=== PATIENT | female | born 1960 | race Caucasian/White ===

== ENCOUNTER 2016-05-24 11:05 | Emergency (ER) | payer BC ==
[~2016-05-24] VITALS: Ht 170.2 cm; Wt 82.0 kg
[~2016-05-24 11:05] MED LIST: ATROVENT NASAL SPRAY; FLNIN NAE; LSNUNK PO; MEDR2.5T PO; NXMUNK PO; RANI150T3 PO; RIZA10TA18 PO
[2016-05-24 11:09] VITALS: TEMP 37; Ht 170.2 cm; Wt 82.0 kg
[2016-05-24] MEDS ORDERED: LSN20 PO (11:29)
[2016-05-24] MEDS ORDERED: FLUT0.15 (11:29)
[2016-05-24] MEDS ORDERED: ESOM1CAP34 PO (11:29)
[2016-05-24] MEDS ORDERED: IPRA0.03 (11:29)
[2016-05-24] MEDS ORDERED: ONDANSETRON INJ 2 MG/ML 2 ML VIAL IV STA (11:57)
[2016-05-24] MEDS ORDERED: SODIUM CHLORIDE 0.9% 1000ML 1,000 ML IV STA (11:57)
[2016-05-24] MEDS ORDERED: OPTIRAY 320 IV PRN ×2 (12:15)
[2016-05-24 12:24] LABS: BASO % 0.2 %; BASO ABS # 0.02 K/uL (0-0.2); COMPLETE YES; EOS % 0.4 %; HEMATOCRIT 43.2 % (37-47); IG% 0.3 %; LYMPH % 17.7 %; LYMPH ABS # 2.05 K/uL (1.2-3.4); MEAN CELL VOLUME 83.1 fL (80-100); MEAN CORPUSCULAR HEMOGLOBIN 26.9 pg (25-34); MEAN CORPUSCULAR HGB CONC 32.4 g/dl (32-36); MEAN PLATELET VOLUME 11.4 fL (7.4-10.4); MONO % 9.8 %; NEUT % 71.6 %; PLATELET COUNT 270 K/uL (130-400); WHITE BLOOD COUNT 11.56 K/uL (4.8-10.8)
[2016-05-24 12:25] LABS: URINE APPEARANCE CLEAR (CLEAR); URINE BILIRUBIN NEG (NEG); URINE COLOR YELLOW; URINE NITRITE NEG (NEG); URINE SPECIFIC GRAVITY 1.022 (1.000-1.030); UROBILINOGEN NEG (NEG)
[2016-05-24 12:36] LABS: MANUAL MICROSCOPIC REQUIRED? NO; REVIEW REQ? NO
[2016-05-24 12:40] LABS: BUN/CREATININE RATIO 9.8 (10-20); CALCIUM 9.1 mg/dl (8.5-10.1); POTASSIUM 3.7 mmol/L (3.5-5.1)
--- NOTE | 2016-05-24 14:57 | DIAGNOSTIC IMAGING REPORT ---
CT SCAN OF THE ABDOMEN AND PELVIS WITH IV CONTRAST CLINICAL HISTORY: Generalized abdominal pain. Fever. COMPARISON STUDY: Abdominal ultrasound dated 08/02/2007. TECHNIQUE: Following the IV administration of 92 cc of Optiray 320, CT scan of the abdomen and pelvis is performed from the lung bases to the proximal femora. Images are reviewed in the axial, sagittal, and coronal planes. IV contrast was administered without complication. Automated dose control exposure was utilized. CT DOSE: 428.11 mGy.cm FINDINGS: Lung bases: The heart is normal in size and without pericardial effusion. The lung bases are clear noting dependent atelectasis. There are several nodular densities identified in the breasts. Liver: The contrast-enhanced liver is normal in size and contour. The liver demonstrates diffusely diminished attenuation consistent with mild hepatic steatosis. There is no intrahepatic biliary ductal dilatation. The hepatic veins and portal veins are patent. Gallbladder: Surgically absent noting clips in the gallbladder fossa. Spleen: Normal in size and attenuation. Pancreas: Unremarkable. Adrenal glands: Unremarkable. Kidneys: The contrast enhanced kidneys are normal in size and without hydronephrosis. The kidneys enhance symmetrically. Abdominal vasculature: The abdominal aorta is normal in course and caliber. Bowel: The small bowel and colon are normal in course and caliber. There is mild sigmoid diverticulosis. There is wall thickening with surrounding pericolonic inflammation and trace fluid seen involving the distal descending/proximal sigmoid colon consistent with acute diverticulitis. No evidence of abscess is seen. There is mild colonic fecal retention. The appendix is well-visualized and normal. Peritoneum: There is no intraperitoneal free air. Trace fluid is seen in the left paracolic gutter. There is a small fat-containing umbilical hernia. Lymphadenopathy: None. Pelvic viscera: The bladder is normal as visualized. Uterine fibroids are suspected. No adnexal lesion is seen. Skeletal structures: 11 mm hypodensity in the spleen seen on image #104 is indeterminant but statistically likely benign. There is mild lumbosacral spondylosis. Minimal anterolisthesis is noted at L4-L5. No lytic or blastic lesions are seen. IMPRESSION: 1. There is mild sigmoid diverticulosis with evidence of acute diverticulitis involving the distal descending/proximal sigmoid colon. There is no intraperitoneal free air or evidence of abscess. 2. Mild hepatic steatosis. 3. Suspect a fibroid uterus. 4. Foci of indeterminant nodularity are present in both breasts. Nonemergent follow-up with mammography at the breast center is recommended. Mammogram. Electronically signed by: Taiwo Goldberg M.D. 05/24/2016 2:56 PM Dictated Date/Time: 05/24/2016 2:49 PM
[2016-05-24] MEDS ORDERED: SULF800T23 PO (15:22)
[2016-05-24] MEDS ORDERED: ACETAMINOPHEN 325 MG TAB PO STA (15:22)
[2016-05-24] MEDS ORDERED: METR-163 PO (15:22)
[2016-05-24 15:34] VITALS: BP 137/91; PULSE 93; O2SAT 100
--- NOTE | 2016-05-24 21:41 | EMERGENCY ROOM VISIT NOTE ---
ED Visit Note First contact with patient: 11:29 Chief Complaint: Left-sided abdominal pain and fever. History of Present Illness: Ms. Piper is a 56 year-old white female who ambulates into the ED accompanied by her complaining of left sided abdominal pain and fever. Patient was referred to the ED by Zev Inman to evaluate her abdominal pain. Historically patient reports significant irritable bowel syndrome, gastric reflux, and status post cholecystectomy and left sided ovarian cyst removal and treatment. Patient reports she was woken from sleep yesterday morning approximately 26 hours ago with sensations of needing to urinate. While she was urinating she reports that she developed mid to lower left sided abdominal pain. Since that time her pain has been constant. She describes an underlying pain that she describes as an achy cramping sensation. She rates his discomfort 4/10. The pain is nonradiating. Then intermittently she reports with movement she develops a sharp pain and rates this discomfort 7/10. She has not identified any other aggravating factors related to the pain. She has not identified any alleviating factors related to the pain. She has not taken any medications for pain prior to arrival at the hospital. Associated with her pain she reports that she has been having fevers with her highest 101F last evening. She denies chills, sweats, skin eruptions, skin color changes, upper respiratory tract symptoms, cough, wheezing, shortness of breath, right-sided abdominal pain, nausea, vomiting, diarrhea, rectal bleeding, black/tarry stools , urinary symptoms, hematuria, flank pain, vaginal bleeding, vaginal discharge. Review of Systems: As noted above in history of present illness. All body systems were reviewed and found to be negative as noted above. Past Medical History: As previously noted, hypertension, left lower leg DVT, varicose pain stripping, unspecified sinus surgery. Current Medications: Depo-Provera, Maxalt, Zantac, lisinopril, Flonase, Esomeprazole magnesium, Ipratropium bromide. Allergies to Medications: Prednisone, erythromycin, Levaquin and Augmentin. Social History: Patient is not employed; she lives with her and feels safe in her home environment; she denies tobacco and alcohol use. Physical Examination: Vital Signs: Date Time Temp Pulse Resp B/P Pulse Ox O2 Delivery O2 Flow Rate FiO2 05/24/16 15:34 93 16 137/91 100 Room Air 05/24/16 13:14 93 18 130/95 99 Room Air 05/24/16 11:09 37.0 105 18 135/80 98 Room Air GENERAL: 56-year-old female in mild to moderate distress due to pain, nontoxic- appearing, afebrile and hemodynamically stable. NEUROLOGICAL: Awake, alert and oriented to person, place and time. Answering questions appropriately and following commands. Normal gait. Good hand eye coordination. SKIN: Warm, dry and pink. No soft tissue eruptions or trauma noted. HEENT: Atraumatic and normocephalic. PERRLA. Sclera white and conjunctiva pink. Oral cavity moist and pink. Pharynx is nonerythematous or edematous. Speech normal. No lymphadenopathy. Trachea midline. No jugular venous distention. BACK: No tenderness over the bony spine. No CVA tenderness. THORAX: Lungs sounds are clear to auscultation and equal bilaterally with symmetrical chest wall. No wheezing, rales or rhonchi. No crepitus, tenderness , subcutaneous air or deformities noted. HEART: Regular rate and rhythm. No gallops, rubs or murmurs are appreciated. ABDOMEN: Flat and soft with moderate left sided tenderness starting in the mid quadrant area and extends into the lower quadrant but not into the pelvis. Decreased bowel sounds in all quadrants. No guarding, rigidity or organomegaly. EXTREMITIES: Moves all extremities well on command and with purpose. All distal neurovascular statuses are intact and equal bilaterally. ED Course: Patient is assessed as noted above. Laboratory Testing: Test 05/24/16 12:10 Range/Units White Blood Count 11.56 4.8-10.8 K/uL Red Blood Count 5.20 4.2-5.4 M/uL Hemoglobin 14.0 12.0-16.0 g/dL Hematocrit 43.2 37-47 % Mean Corpuscular Volume 83.1 80-100 fL Mean Corpuscular Hemoglobin 26.9 25-34 pg Mean Corpuscular Hemoglobin Concent 32.4 32-36 g/dl Platelet Count 270 130-400 K/uL Mean Platelet Volume 11.4 7.4-10.4 fL Neutrophils (%) (Auto) 71.6 % Lymphocytes (%) (Auto) 17.7 % Monocytes (%) (Auto) 9.8 % Eosinophils (%) (Auto) 0.4 % Basophils (%) (Auto) 0.2 % Neutrophils # (Auto) 8.28 1.4-6.5 K/uL Lymphocytes # (Auto) 2.05 1.2-3.4 K/uL Monocytes # (Auto) 1.13 0.11-0.59 K/uL Eosinophils # (Auto) 0.05 0-0.5 K/uL Basophils # (Auto) 0.02 0-0.2 K/uL RDW Standard Deviation 43.8 36.4-46.3 fL RDW Coefficient of Variation 14.3 11.5-14.5 % Immature Granulocyte % (Auto) 0.3 % Immature Granulocyte # (Auto) 0.03 0.00-0.02 K/uL Urine Color YELLOW Urine Appearance CLEAR CLEAR Urine pH 6.0 4.5-7.5 Urine Specific [place] 1.022 1.000-1.030 Urine Protein NEG NEG Urine Glucose (UA) NEG NEG Urine Ketones TRACE NEG Urine Occult Blood NEG NEG Urine Nitrite NEG NEG Urine Bilirubin NEG NEG Urine Urobilinogen NEG NEG Urine Leukocyte Esterase NEG NEG Sodium Level 139 136-145 mmol/L Potassium Level 3.7 3.5-5.1 mmol/L Chloride Level 104 98-107 mmol/L Carbon Dioxide Level 25 21-32 mmol/L Anion Gap 10.0 3-11 mmol/L Blood Urea Nitrogen 10 7-18 mg/dl Creatinine 1.00 0.60-1.20 mg/dl Est Creatinine Clear Calc Drug Dose 70.8 ml/min Estimated GFR () 74.0 Estimated GFR (Non- 63.8 BUN/Creatinine Ratio 9.8 10-20 Random Glucose 103 70-99 mg/dl Calcium Level 9.1 8.5-10.1 mg/dl Total Bilirubin 1.3 0.2-1 mg/dl Direct Bilirubin 0.2 0-0.2 mg/dl Aspartate Amino Transf (AST/SGOT) 8 15-37 U/L Alanine Aminotransferase (ALT/SGPT) 18 12-78 U/L Alkaline Phosphatase 74 45-117 U/L Total Protein 7.8 6.4-8.2 gm/dl Albumin 3.7 3.4-5.0 gm/dl Lipase 142 73-393 U/L Contrast Abdominal/Pelvic CT: Was reviewed by myself and read by the radiologist showing mild sigmoid diverticulosis with evidence of acute diverticulitis, no free air or evidence of abscess, mild hepatic steatosis, suspected fibroid uterus, focal intermittent nodularity in both breasts. Patient was hydrated with normal saline and received 4 mg of Zofran IV; patient was offered IV pain medications multiple times and refused. Just prior to discharge she reports she was having a mild headache and requested 650 mg of acetaminophen which I acknowledge and ordered for her. Patient was reassessed multiple times during her stay in the emergency department. Patient's case was reviewed with Dr. Friedman; we agreed on diagnostic approach, treatment, disposition and plan. Patient was educated about jasvir's findings and instructed on her treatment plan; she verbalizes understanding and agreement with this plan. Clinical Impression: Acute diverticulitis. Decision-Making: Initially my differential diagnosis I considered diverticulitis , perforated viscus, constipation, bowel obstruction, ovarian cyst, ectopic , kidney stone and other causes. Disposition: Patient discharged home in stable condition accompanied by her ; prior to departure she was reassessed and subjectively reported she was feeling better and rated her discomfort 1/10. Plan: Patient was encouraged to use ibuprofen or acetaminophen as needed for pain every 6 hours or alternate every 3 hours. Patient was prescribed Bactrim DS 2 times a day and Flagyl 500 mg 3 times a day for 10 days. Patient was encouraged to stay well-hydrated with increased clear fluids. Patient was encouraged to follow-up with family physician for recheck in 1-2 days Patient was encouraged return ED for worsening/uncontrolled pain, worsening fevers, bloody stools or any new/concerning symptoms.
== END 2016-05-24 15:35 | disposition home or self-care (01) ==
LOC: C.EDB 11:07 → C.EDC 15:35
DX: K57.92 Diverticulitis of intestine, part unspecified, without perforation or abscess without bleeding (principal); K58.9 Irritable bowel syndrome, unspecified; K21.9 Gastro-esophageal reflux disease without esophagitis; Z86.718 Personal history of other venous thrombosis and embolism; Z90.49 Acquired absence of other specified parts of digestive tract; Z98.890 Other specified postprocedural states; Z79.899 Other long term (current) drug therapy

== ENCOUNTER → 2016-06-22 | Outpatient (CLI) | payer BC ==
[~2016-06-22] MED LIST changes: -ATROVENT NASAL SPRAY; +ESOM1CAP34 PO; -FLNIN NAE; +FLUT0.15; +IPRA0.03; +LSN20 PO; -LSNUNK PO; -NXMUNK PO
== END | disposition home or self-care (01) ==
LOC: C.PAPS 14:44
PROVIDERS: ATTEND Obstetrics & Gynecology
DX: Z01.419 Encounter for gynecological examination (general) (routine) without abnormal findings (principal)

== ENCOUNTER → 2016-06-27 | Outpatient (CLI) | payer BC ==
--- NOTE | 2016-06-28 15:18 | MAMMOGRAPHY REPORT ---
BILATERAL DIGITAL SCREENING MAMMOGRAM TOMOSYNTHESIS WITH CAD: 06/27/2016 CLINICAL HISTORY: Routine screening examination. TECHNIQUE: Breast tomosynthesis in addition to standard 2D mammography was performed. Current study was also evaluated with a Computer Aided Detection (CAD) system. COMPARISON: Comparison is made to exams dated: 06/23/2015 mammogram, 06/20/2014 mammogram, 06/19/2013 kim mogram, 06/16/2011 mammogram, 06/18/2012 mammogram, and 04/13/2010 mammogram - [facility]. BREAST COMPOSITION: There are scattered areas of fibroglandular density in both breasts. FINDINGS: There are fluctuating masses throughout the breasts, most likely representing fluctuating cysts. There is a stable metallic biopsy marker in the 3:00 right breast. No suspicious spiculated or irregular mass, architectural distortion or cluster of new, suspicious microcalcifications is se en. IMPRESSION: ACR BI-RADS CATEGORY 1: NEGATIVE There is no mammographic evidence of malignancy. A 1 year screening mammogram is recommended. The p atient will receive written notification of the results. Approximately 10% of breast cancers are not detected with mammography. A negative mammographic repor t should not delay biopsy if a clinically suggestive mass is present. Janice Mckeon M.D. ay/:06/27/2016 17:00:01 Roll Threader Operator: Jenn MCKEON(Steven)(M), [facility] letter sent: Normal 1/2 BI-RADS Code: ACR BI-RADS Category 1: Negative
== END | disposition home or self-care (01) ==
LOC: C.MAMM 08:57
PROVIDERS: ATTEND Obstetrics & Gynecology
DX: Z12.31 Encounter for screening mammogram for malignant neoplasm of breast (principal)

== ENCOUNTER → 2017-02-06 | Outpatient (CLI) | payer BC ==
[2017-02-06 12:13] LABS: HEMATOCRIT 44.1 % (37-47); MEAN CELL VOLUME 86.8 fL (80-100); MEAN CORPUSCULAR HEMOGLOBIN 27.6 pg (25-34); MEAN CORPUSCULAR HGB CONC 31.7 g/dl (32-36); PLATELET COUNT 269 K/uL (130-400); RED BLOOD COUNT 5.08 M/uL (4.2-5.4)
[2017-02-06 12:22] LABS: BLOOD UREA NITROGEN 13 mg/dl (7-18); BUN/CREATININE RATIO 11.5 (10-20); CALCIUM 9.2 mg/dl (8.5-10.1); CARBON DIOXIDE 28 mmol/L (21-32); CHLORIDE 107 mmol/L (98-107); GLUCOSE 92 mg/dl (70-99); MAGNESIUM 2.1 mg/dl (1.8-2.4); SODIUM 142 mmol/L (136-145)
== END | disposition home or self-care (01) ==
LOC: C.LAB1850 10:31
PROVIDERS: ATTEND Internal Medicine Cardiovascular Disease
DX: R00.2 Palpitations (principal); I47.2 Ventricular tachycardia

== ENCOUNTER → 2017-05-16 | Outpatient (CLI) | payer OTHER ==
[2017-05-16 17:56] LABS: BLOOD UREA NITROGEN 14 mg/dl (7-18); CREATININE 1.05 mg/dl (0.60-1.20)
== END | disposition home or self-care (01) ==
LOC: C.LAB1850 17:00
PROVIDERS: ATTEND Family Medicine
DX: N18.3 Chronic kidney disease, stage 3 (moderate) (principal)

== ENCOUNTER → 2017-06-29 | Outpatient (CLI) | payer OTHER ==
--- NOTE | 2017-06-30 07:45 | MAMMOGRAPHY REPORT ---
BILATERAL DIGITAL SCREENING MAMMOGRAM TOMOSYNTHESIS WITH CAD: 06/29/2017 CLINICAL HISTORY: Routine screening. Patient has no complaints. TECHNIQUE: Breast tomosynthesis in addition to standard 2D mammography was performed. Current study was also evaluated with a Computer Aided Detection (CAD) system. COMPARISON: Comparison is made to exams dated: 06/27/2016 mammogram, 06/23/2015 mammogram, 06/20/2014 kim mogram, 06/19/2013 mammogram, 06/18/2012 mammogram, and 06/16/2011 mammogram - [facility] BREAST COMPOSITION: There are scattered areas of fibroglandular density in both breasts. FINDINGS: No suspicious masses, calcifications, or areas of architectural distortion are noted in ei ther breast. There has been no significant interval change compared to prior exams. A biopsy clip is again noted within the right 3:00 breast. Fluctuating benign-appearing masses in bilateral breasts are again noted and likely represent cysts. IMPRESSION: ACR BI-RADS CATEGORY 2: BENIGN There is no mammographic evidence of malignancy. A 1 year screening mammogram is recommended. The pa tient will receive written notification of the results. Approximately 10% of breast cancers are not detected with mammography. A negative mammographic report should not delay biopsy if a clinically suggestive mass is present. Milagro Meeks M.D. /:06/29/2017 14:29:53 Termite Control Service Representative: Marichuy MCKEON(Steven)(M), [facility] letter sent: Normal 1/2 BI-RADS Code: ACR BI-RADS Category 2: Benign
== END | disposition home or self-care (01) ==
LOC: C.MAMM 08:53
PROVIDERS: ATTEND Obstetrics & Gynecology
DX: Z12.31 Encounter for screening mammogram for malignant neoplasm of breast (principal)

== ENCOUNTER → 2017-10-10 | Outpatient (CLI) | payer OTHER ==
[~2017-10-10] MED LIST changes: +LISI-726 PO; -LSN20 PO
== END | disposition home or self-care (01) ==
LOC: C.PAPS 16:32
PROVIDERS: ATTEND Obstetrics & Gynecology
DX: Z12.4 Encounter for screening for malignant neoplasm of cervix (principal)

== ENCOUNTER 2024-06-30 20:47 | Inpatient (IN) ==
[2024-06-30] MEDS: cefTRIAXone SODIUM 2,000 MG/50 ML BAG IV STA (21:58)
[2024-06-30] MEDS: KETOROLAC TROMETHAMINE 15 MG/ML VIAL IV STA (21:59)
[2024-06-30 22:04] LABS: Basophils # (auto) 0.02 K/uL (0.00-0.20); Basophils % (auto) 0.3 %; Eosinophils # (auto) 0.15 K/uL (0.00-0.50); Eosinophils % (auto) 2.3 %; Hematocrit (blood only) 42.1 % (37.0-47.0); Hemoglobin 13.5 g/dl (12.0-16.0); Immature Granulocytes # (auto) 0.02 K/uL (0.01-0.20); Immature Granulocytes % (auto) 0.3 %; Lymphocytes # (auto) 2.07 K/uL (1.20-3.40); Lymphocytes % (auto) 31.2 %; Mean Corpuscular Hemoglobin 27.2 pg (25.0-34.0); Mean Corpuscular Hgb Conc 32.1 g/dL (32.0-36.0); Mean Corpuscular Volume 84.7 fL (80.0-100.0); Mean Platelet Volume 11.4 fL (9.4-12.4); Monocytes # (auto) 0.63 K/uL (0.11-0.59); Monocytes % (auto) 9.5 %; Neutrophils # (auto) 3.74 K/uL (1.40-6.50); Neutrophils % (auto) 56.4 %; Platelet Count 235 K/uL (130-400); RDW Coefficient of Variation 14.4 % (11.5-14.5); RDW Standard Deviation 44.5 fL (36.4-46.3); Red Blood Count 4.97 M/uL (4.20-5.40); White Blood Count 6.63 K/ul (4.8-10.8)
[2024-06-30 22:20] LABS: Albumin Globulin Ratio 1.3 (0.9-2); Albumin Level 4.1 gm/dl (3.4-5.0); Bilirubin,Total 0.6 mg/dl (0.2-1.0); Calcium 9.1 mg/dl (8.6-10.3); Creatinine Clr Calc Pharmacy 60.9 ml/min; Globulin 3.2 gm/dl (2.5-4.0); Potassium 3.6 mmol/L (3.5-5.1); Total Protein 7.3 gm/dl (6.0-8.3)
--- NOTE | 2024-06-30 22:22 | Emergency Department Note ---
History of Present Illness General Chief complaint: Skin Problem Stated complaint: PAINFUL SKIN LUMP Time Seen by Provider: 06/30/24 21:29 History of Present Illness Maximum Pain Intensity: 6 This 64-year-old female presents ER complaining of worsening infection to her chest. Patient states she said a sebaceous cyst on her chest for years but a few days ago started getting red and irritated and the family doctor put her on Bactrim. Since then the redness and pain is increased in size. Patient denies fevers, vomiting, diarrhea history of MRSA. Home Medications Medication Instructions Recorded Confirmed Type esomeprazole magnesium 40 mg 40 mg PO DAILY 06/30/24 06/30/24 History capsule,delayed release fluticasone propionate 50 1 spray intranasal BID 06/30/24 06/30/24 History mcg/actuation nasal spray,suspension ipratropium bromide 21 mcg (0.03 2 spray intranasal BID 06/30/24 06/30/24 History %) nasal spray lisinopril 40 mg tablet 40 mg PO DAILY 06/30/24 06/30/24 History sodium chloride 0.65 % nasal spray 1 spray intranasal BID PRN Nasal 06/30/24 06/30/24 History aerosol (Nasal Jachin (sodium Congestion chloride)) sulfamethoxazole 800 1 tab PO BID 06/30/24 06/30/24 History mg-trimethoprim 160 mg tablet Allergies Allergy/AdvReac Type Severity Reaction Status Date / Time levofloxacin Allergy Mild severe Verified 06/21/24 12:56 tendon pain in b/l knee ciprofloxacin Allergy Verified 06/21/24 12:56 amoxicillin AdvReac Unknown n/v Verified 06/21/24 12:56 clavulanic acid AdvReac Unknown n/v Verified 06/21/24 12:56 erythromycin base AdvReac Unknown GI UPSET Verified 06/21/24 12:56 prednisone AdvReac Unknown PALPITATIONS, Verified 06/21/24 12:56 JITTERY Past Med/Surg History Problem List (Updated 06/30/24 @ 23:55 by Roberth Alegria MD) Infected cyst of skin Cellulitis of chest wall (Acute) Infected sebaceous cyst of skin (Acute) Essential hypertension Chronic GERD Medical History (Updated 06/30/24 @ 23:55 by Roberth Alegria MD) Hormone replacement therapy stopped 03/2023 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 Diverticulosis Pelvic pain in female H/O uterine leiomyoma Surgical History History of sinus surgery History of cholecystectomy H/O ligation of vein Family History Mother Breast cancer, Onset Age: 81 Grandmother (Maternal) Colorectal cancer Aunt Lung cancer Denies family history of Prostate cancer Social History Smoking Status: Former smoker Do You Dip or Chew Tobacco: No; Hx Alcohol Use: Yes Preferred Language: Chilean Feels Safe at Home: Yes Review of Systems A total of 10 systems reviewed and were otherwise negative Physical Exam Vital Signs Vital Signs - 24 hr 06/30/24 20:51 06/30/24 22:49 Temperature 36.8 C Temperature Source Temporal Artery Scan Pulse Rate 85 Pulse Rate [Finger] 71 Pulse Rhythm Regular Pulse Rhythm [Finger] Regular Pulse Strength Normal Pulse Strength [Finger] Normal Respiratory Rate 16 17 Respiratory Effort / Characteristics Non-Labored Spontaneous Non-Labored Spontaneous Respiratory Depth Normal Normal Respiratory Pattern Regular Regular Blood Pressure 170/103 H Blood Pressure [Left Arm] 150/96 H Blood Pressure Mean 125 Blood Pressure Mean [Left Arm] 114 Blood Pressure Position [Left Arm] Sitting Pulse Oximetry 97 92 Oxygen Delivery Method Room Air Room Air Sepsis Recent Fever Within 48 Hours No Sepsis New/Unexplained Change in Mental Status No Sepsis Action Taken by Nursing No Action Required VITALS: Vitals are noted on the nurse's note and reviewed by myself. Vital signs stable. GENERAL: Pleasant patient with present, in no acute distress, nondiaphoretic, well-developed well-nourished. 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 HEENT: Normocephalic. PERRLA. EOMI. Nares patent. Mucous membranes moist. Neck is supple without nuchal rigidity. HEART: Regular rate and rhythm LUNGS: Clear to auscultation bilaterally without wheezes, rales or rhonchi. No retractions or accessory muscle use. ABDOMEN: Positive bowel sounds x 4. Normal tympanic percussion. Soft, nontender, without masses or organomegaly. Sofia sign negative. No guarding or rebound tenderness. no CVA tenderness MUSCULOSKELETAL: No gross musculoskeletal defects. NEURO: Patient was alert and oriented to person place and time. No focal neurological deficits. Course Administered Medications Discontinued Medications Ceftriaxone Sodium (Rocephin) 2,000 mg in 50 mls @ 100 mls/hr IV NOW STA; Protocol Stop: 06/30/24 22:08 Last Infusion: 06/30/24 22:34 Dose: Infused Documented By: Admin: 06/30/24 21:58 Dose: 100 mls/hr Documented By: REDD Ketorolac Tromethamine (Ketorolac Tromethamine 15 Mg/Ml Vial) 10 mg IV NOW STA Stop: 06/30/24 21:42 Last Admin: 06/30/24 21:59 Dose: 10 mg Documented By: REDD Medical Decision Making Medical Records Attestation: I reviewed the patient's medical records. Home Medications Current Medication List: was personally reviewed by me Laboratory Data Attestation: I reviewed the patient's lab results. 06/30/24 21:50 06/30/24 21:50 Lab Results 06/30/24 Range/Units 21:50 WBC 6.63 (4.8-10.8) K/ul RBC 4.97 (4.20-5.40) M/uL Hgb 13.5 (12.0-16.0) g/dl Hct 42.1 (37.0-47.0) % MCV 84.7 (80.0-100.0) fL MCH 27.2 (25.0-34.0) pg MCHC 32.1 (32.0-36.0) g/dL RDW Std Deviation 44.5 (36.4-46.3) fL RDW Coeff of Leda 14.4 (11.5-14.5) % Plt Count 235 (130-400) K/uL MPV 11.4 (9.4-12.4) fL Immature Gran % (Auto) 0.3 % Neut % (Auto) 56.4 % Lymph % (Auto) 31.2 % Millard % (Auto) 9.5 % Eos % (Auto) 2.3 % Baso % (Auto) 0.3 % Neut # (Auto) 3.74 (1.40-6.50) K/uL Lymph # (Auto) 2.07 (1.20-3.40) K/uL Millard # (Auto) 0.63 H (0.11-0.59) K/uL Eos # (Auto) 0.15 (0.00-0.50) K/uL Baso # (Auto) 0.02 (0.00-0.20) K/uL Immature Gran # (Auto) 0.02 (0.01-0.20) K/uL Sodium 139 (136-145) mmol/L Potassium 3.6 (3.5-5.1) mmol/L Chloride 107 (98-107) mmol/L Carbon Dioxide 27 (21-32) mmol/L Anion Gap 5 (3-11) BUN 16 (6-23) mg/dl Creatinine 1.07 (0.6-1.2) mg/dl Est Cr Clr Drug Dosing 60.9 ml/min eGFR 58.73 BUN/Creatinine Ratio 15.0 (10-20) Glucose 93 (70-99(Fasting)) mg/dl Calcium 9.1 (8.6-10.3) mg/dl Total Bilirubin 0.6 (0.2-1.0) mg/dl AST 14 (13-39) U/L ALT 12 (7-52) U/L Alkaline Phosphatase 88 (34-104) U/L Total Protein 7.3 (6.0-8.3) gm/dl Albumin 4.1 (3.4-5.0) gm/dl Globulin 3.2 (2.5-4.0) gm/dl Albumin/Globulin Ratio 1.3 (0.9-2) Imaging Data Attestation: I personally reviewed and interpreted this imaging study as follows: Radiologist's Impression: Soft Tissue Ultrasound 06/30/24 21:39 Exam(s): US SOFT TISSUE EXAM: US Chest CLINICAL HISTORY: Reason for exam: right chest/breast abscess, ? extent. TECHNIQUE: Real-time ultrasound of the chest with image documentation. COMPARISON: No relevant prior studies available. FINDINGS: Soft tissues: In the midline of the chest, between the breasts, there is a complex vascular hypoechoic structure measuring 2.4 x 1.3 x 2.3 cm.. Lymph nodes: No lymphadenopathy is seen. IMPRESSION: In the midline of the chest, between the breasts, there is a complex vascular hypoechoic structure measuring 2.4 x 1.3 x 2.3 cm.. This may represent an abscess. Malignancy cannot be excluded on this exam. Electronically signed by: Jovan Crowley MD 06/30/24 23:26 PM MDM Narrative Prior records reviewed and summarized as above. Triage Nursing notes reviewed. Additional history obtained from family. The patient's history was concerning for swelling and redness of the skin. Differential diagnosis: Etiologies such as cellulitis, abscess, MRSA infection, DVT, necrotizing fasciitis, dermatitis, drug eruption, as well as others were entertained.. Physical examination: As above ER treatment provided: Rocephin and Toradol were ordered On reassessment the patient felt better. Diagnostics interpreted by me: The labs Independently Interpreted by myself revealed no worrisome leukocytosis, stable H&H Imaging studies: Imaging was reviewed and read by radiology Consultation: A consultation was placed with the hospitalist. The case was discussed and diagnostics were reviewed. The patient was evaluated in the ER for further treatment. This appears to be infected sebaceous cyst to the chest wall that is getting worse. Patient had worsening cellulitis while on the antibiotic. It is extended to her breast now. She was started on IV antibiotics. Medicine was consulted and the case was discussed. She will be evaluated for admission. Patient is agreeable. By the evaluation outlined above emergent etiologies such as necrotizing fasciitis, as well as others were deemed relatively unlikely. The pt informed about the findings as listed above. All questions were answered and pleased with the treatment. The chart was completed utilizing [email or web address] Speech voice recognition software. Grammatical errors, random word insertions, pronoun errors, and incomplete sentences are an occassional consequence of this system due to software limitations, ambient noise, and hardware issues. Any formal questions or concerns about the content, text, or information contained within the body of this dictation should be directly addressed to the physician diet assistant for clarification. Impression & Plan Infected sebaceous cyst of skin, Cellulitis of chest wall Discharge Plan Visit Data Chief Complaint: Skin Problem Stated Complaint: PAINFUL SKIN LUMP ED Provider: Kimani Liu ED Midlevel Provider: Glenny Brooks Discharge Problem: Infected sebaceous cyst of skin, Cellulitis of chest wall Patient Disposition: Being Evaluated by Hospitalist Condition: Good Forms Stand Alone Forms: My [facility] Prescriptions Prescriptions: No Action sulfamethoxazole-trimethoprim 800-160 mg tablet 1 tab PO BID esomeprazole magnesium 40 mg capsule,delayed release(DR/EC) 40 mg PO DAILY lisinopril 40 mg tablet 40 mg PO DAILY ipratropium bromide 21 mcg (0.03 %) spray,non-aerosol 2 spray INTRANASAL BID fluticasone propionate [Flonase] 50 mcg/actuation Jachin,Suspension 1 spray INTRANASAL BID Rx Instructions: administer into each nostril Nasal Jachin (sodium chloride) 0.65 % Aerosol,Jachin 1 spray INTRANASAL BID PRN (Reason: Nasal Congestion) Referrals Referrals: Fartun Burrows, [Outside Practitioners] -
--- NOTE | 2024-06-30 23:28 | Ultrasound Report ---
Exam(s): US SOFT TISSUE EXAM: US Chest CLINICAL HISTORY: Reason for exam: right chest/breast abscess, ? extent. TECHNIQUE: Real-time ultrasound of the chest with image documentation. COMPARISON: No relevant prior studies available. FINDINGS: Soft tissues: In the midline of the chest, between the breasts, there is a complex vascular hypoechoic structure measuring 2.4 x 1.3 x 2.3 cm.. Lymph nodes: No lymphadenopathy is seen. IMPRESSION: In the midline of the chest, between the breasts, there is a complex vascular hypoechoic structure measuring 2.4 x 1.3 x 2.3 cm.. This may represent an abscess. Malignancy cannot be excluded on this exam. Electronically signed by: Jovan Crowley MD 06/30/24 23:26 PM
--- NOTE | 2024-06-30 23:57 | History & Physical Report ---
Date of Service June 30, 2024 Assessment & Plan (1) Infected cyst of skin: Plan: 64-year-old female with past medical history significant for nonallergic rhinitis, hypertension, history of tachycardia, history of thrombosis of ovarian vein, esophagitis, history of calculus of gallbladder, diverticulosis, history of vestibular schwannoma, history of migraine, presents with infected cyst on the chest wall in the center of sternum. Patient states she has a lump there for many years. But since last 1 week started getting red and swollen and saw PCP and prescribed Bactrim on 06/28/2024. But the lump on the chest is getting bigger erythematous and more painful and the pain was radiating to the breast when she decided to come to the ER today. Denies any fevers. Currently denies runny nose. Has some cough from her sinusitis. No shortness of breath. No nausea. No abdominal pain. Since starting on Bactrim she has some diarrhea. Micturating okay. Ambulating okay. Hemodynamics are okay. Infected cyst of skin Ultrasound:n the midline of the chest, between the breasts, there is a complex vascular hypoechoic structure measuring 2.4 x 1.3 x 2.3 cm.. This may represent an abscess. Malignancy cannot be excluded on this exam. Failed outpatient treatment with Bactrim Received Rocephin in the ER. Will continue with Rocephin and add Dapto Pain control N.p.o., IV fluids Surgery consult in a.m. 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 DVT prophylaxis SCDs for now Disposition Medical floor Full code. History of Present Illness Chief Complaint: Infected cyst on the chest wall Primary Care Provider: Meagan Carvajal PA-C 64-year-old female with past medical history significant for nonallergic rhinitis, hypertension, history of tachycardia, history of thrombosis of ovarian vein, esophagitis, history of calculus of gallbladder, diverticulosis, history of vestibular schwannoma, history of migraine, presents with infected cyst on the chest wall in the center of sternum. Patient states she has a lump there for many years. But since last 1 week started getting red and swollen and saw PCP and prescribed Bactrim on 06/28/2024. But the lump on the chest is getting bigger erythematous and more painful and the pain was radiating to the breast when she decided to come to the ER today. Denies any fevers. Currently denies runny nose. Has some cough from her sinusitis. No shortness of breath. No nausea. No abdominal pain. Since starting on Bactrim she has some diarrhea. Micturating okay. Ambulating okay. Hemodynamics are okay. Past medical history. As mentioned above Past surgical history. Breast biopsy. Dental surgery. EGD. Laparoscopic cholecystectomy. Ligation of varicose veins. Nasal endoscopy. Bilateral cataracts. Social history. . No smoking. No alcohol use. No drug use. Family history. Father hypertension. Mother had hypercholesterolemia. Hypertension. Hypothyroidism. Maternal aunt had leukemia and lymphoma. Allergies Allergy/AdvReac Type Severity Reaction Status Date / Time levofloxacin Allergy Mild severe Verified 06/21/24 12:56 tendon pain in b/l knee ciprofloxacin Allergy Verified 06/21/24 12:56 amoxicillin AdvReac Unknown n/v Verified 06/21/24 12:56 clavulanic acid AdvReac Unknown n/v Verified 06/21/24 12:56 erythromycin base AdvReac Unknown GI UPSET Verified 06/21/24 12:56 prednisone AdvReac Unknown PALPITATIONS, Verified 06/21/24 12:56 JITTERY Home Medications Medication Instructions Recorded Confirmed Type esomeprazole magnesium 40 mg 40 mg PO DAILY 06/30/24 06/30/24 History capsule,delayed release fluticasone propionate 50 1 spray intranasal BID 06/30/24 06/30/24 History mcg/actuation nasal spray,suspension ipratropium bromide 21 mcg (0.03 2 spray intranasal BID 06/30/24 06/30/24 History %) nasal spray lisinopril 40 mg tablet 40 mg PO DAILY 06/30/24 06/30/24 History sodium chloride 0.65 % nasal spray 1 spray intranasal BID PRN Nasal 06/30/24 06/30/24 History aerosol (Nasal Marvin (sodium Congestion chloride)) sulfamethoxazole 800 1 tab PO BID 06/30/24 06/30/24 History mg-trimethoprim 160 mg tablet Past Med/Surg History Problem List Infected cyst of skin Cellulitis of chest wall (Acute) Infected sebaceous cyst of skin (Acute) Essential hypertension Chronic GERD Medical History Hormone replacement therapy stopped 03/2023 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 Diverticulosis Pelvic pain in female H/O uterine leiomyoma Surgical History History of sinus surgery History of cholecystectomy H/O ligation of vein Family History Mother Breast cancer, Onset Age: 81 Grandmother (Maternal) Colorectal cancer Aunt Lung cancer maternal Denies family history of Prostate cancer Social History Smoking Status: Former smoker Do You Dip or Chew Tobacco: No; Hx Alcohol Use: No Hx Substance Use: No Preferred Language: Japanese Wardrobe Mistress Required: No Beliefs That Will Affect Care: None Current Living Situation: Spouse Other Information That Helps Us Care for You: No Feels Safe at Home: Yes Safety Concerns: Feels Safe At This Time Assistive Devices: Contacts and Glasses Review of Systems Review of Systems: All systems reviewed & are unremarkable except as noted in HPI & below Physical Exam Physical Exam: General- Not in distress Head- atraumatic Eyes- PERRL. ENT- oropharynx clear Neck- supple, no JVD. Lungs- clear to auscultation no wheezing or crackles Heart- regular rate and rhythm; no murmur, no gallop. Abdomen- normal bowel sounds, soft, nontender, no distension Extremities- no pretibial edema, no erythema seen Neuro- alert, oriented PERRL, no facial palsy; no dysarthria; moves extremities Skin- infected cyst seen on the middle of sternal region with erythema surrounding on inspection. Inspected in presence of the nursing staff Results & Data Results & Data Vital Signs (Past 12 Hours) Vital Signs Temp Pulse Pulse Resp BP BP Pulse Ox 06/30/24 22:49 71 17 150/96 H 92 06/30/24 20:51 36.8 C 85 16 170/103 H 97 O2 Del Method 06/30/24 22:49 Room Air 06/30/24 20:51 Room Air Diagnostic Findings Laboratory Results WBC 6.63 K/ul (4.8-10.8) 06/30/24 21:50 RBC 4.97 M/uL (4.20-5.40) 06/30/24 21:50 Hgb 13.5 g/dl (12.0-16.0) 06/30/24 21:50 Hct 42.1 % (37.0-47.0) 06/30/24 21:50 MCV 84.7 fL (80.0-100.0) 06/30/24 21:50 MCH 27.2 pg (25.0-34.0) 06/30/24 21:50 MCHC 32.1 g/dL (32.0-36.0) 06/30/24: RDW Std Deviation 44.5 fL (36.4-46.3) 06/30/24: RDW Coeff of Leda 14.4 % (11.5-14.5) 06/30/24: Plt Count 235 K/uL (130-400) 06/30/24 21: MPV 11.4 fL (9.4-12.4) 06/30/24 21:50 Immature Gran % (Auto) 0.3 % 06/30/24 21:50 Neut % (Auto) 56.4 % 06/30/24 21:50 Lymph % (Auto) 31.2 % 06/30/24 21:50 Ward % (Auto) 9.5 % 06/30/24:50 Eos % (Auto) 2.3 % 06/30/24:50 Baso % (Auto) 0.3 % 06/30/24:50 Neut # (Auto) 3.74 K/uL (1.40-6.50) 06/30/24 21:50 Lymph # (Auto) 2.07 K/uL (1.20-3.40) 06/30/24 21:50 Ward # (Auto) 0.63 K/uL (0.11-0.59) H 06/30/24 21:50 Eos # (Auto) 0.15 K/uL (0.00-0.50) 06/30/24 21:50 Baso # (Auto) 0.02 K/uL (0.00-0.20) 06/30/24 21:50 Immature Gran # (Auto) 0.02 K/uL (0.01-0.20) 06/30/24 21:50 Sodium 139 mmol/L (136-145) 06/30/24 21:50 Potassium 3.6 mmol/L (3.5-5.1) 06/30/24 21:50 Chloride 107 mmol/L (98-107) 06/30/24 21:50 Carbon Dioxide 27 mmol/L (21-32) 06/30/24 21:50 Anion Gap 5 (3-11) 06/30/24 21:50 BUN 16 mg/dl (6-23) 06/30/24 21:50 Creatinine 1.07 mg/dl (0.6-1.2) 06/30/24 21:50 Est Cr Clr Drug Dosing 60.9 ml/min 06/30/24 21:50 eGFR 58.73 06/30/24 21:50 BUN/Creatinine Ratio 15.0 (10-20) 06/30/24 21:50 Glucose 93 mg/dl (70-99(Fasting)) 06/30/24 21:50 Calcium 9.1 mg/dl (8.6-10.3) 06/30/24 21:50 Total Bilirubin 0.6 mg/dl (0.2-1.0) 06/30/24 21:50 AST 14 U/L (13-39) 06/30/24 21:50 ALT 12 U/L (7-52) 06/30/24 21:50 Alkaline Phosphatase 88 U/L (34-104) 06/30/24 21:50 Total Protein 7.3 gm/dl (6.0-8.3) 06/30/24 21:50 Albumin 4.1 gm/dl (3.4-5.0) 06/30/24 21:50 Globulin 3.2 gm/dl (2.5-4.0) 06/30/24 21:50 Albumin/Globulin Ratio 1.3 (0.9-2) 06/30/24 21:50 Impressions Soft Tissue Ultrasound 06/30/24 21:39 Exam(s): US SOFT TISSUE EXAM: US Chest CLINICAL HISTORY: Reason for exam: right chest/breast abscess, ? extent. TECHNIQUE: Real-time ultrasound of the chest with image documentation. COMPARISON: No relevant prior studies available. FINDINGS: Soft tissues: In the midline of the chest, between the breasts, there is a complex vascular hypoechoic structure measuring 2.4 x 1.3 x 2.3 cm.. Lymph nodes: No lymphadenopathy is seen. IMPRESSION: In the midline of the chest, between the breasts, there is a complex vascular hypoechoic structure measuring 2.4 x 1.3 x 2.3 cm.. This may represent an abscess. Malignancy cannot be excluded on this exam. Electronically signed by: Jovan Crowley MD 06/30/24 23:26 PM Code Status & VTE Plan VTE Prophylaxis Plan VTE Prophylaxis will be ordered: Yes
[2024-07-01] MEDS ORDERED: POLYETHYLENE (MIRALAX) 17 GM PACK PO PRN (01:43)
[2024-07-01] MEDS ORDERED: SODIUM CHLORIDE 0.65% NA SOLN 45 ML (OCEAN) PRN (01:43)
[2024-07-01] MEDS ORDERED: KETOROLAC TROMETHAMINE 15 MG/ML VIAL IV PRN (01:43)
--- OUTSIDE RECORDS SUMMARY | 2024-07-01 01:45 | External Medical Summary | Summary of Care ---
Author Name Unknown Organization [facility] Address [address] [facility] [place] [address] Phone [phone] Care Team Providers Care Metal Forger'S Assistant Name Role Phone Wei Meagan Hatfield PA-C Primary Care Provider Reason for Visit * Reason Comments Lump Encounter Details Date Type Department Care Team (Late st Contact Info) Description 06/28/2024 1:20 PM EDT Office Visit General Internal Medicine Yoel Velasquez [place] [address] [facility] [place] [address] Kristina Mares PA-C [address] [facility] [place] [address] Infected cyst of skin* Allergies Active Allergy Reactions Criticality Noted Date Comments Ciprofloxacin 10/10/2023 Erythromycin Base 03/06/2001 gi Levofloxacin Other (Please comment) 07/02/2013 Knee tendon inflammation Prednisone 01/05/2010 Heart racing documented as of this encounter (statuses as of 06/28/2024) Medications NASAL SALINE 0.65 % NA SOLNIndications: Hypertrophy of nasal turbinates,Tempo romandibular joint disorders, unspecified,Shellfish Processing Machine Tender allyson rhinitis,Deviate d nasal septum,Other acute sinusitis,Iron deficiency anemia,Allergic rhinitis,Migrain e with aura,Esophagitis , unspecified,Vari sree without complication three puffs each nostril every 2 hours while awake 1 5 07/23/201 0 Active TYLENOL EXTRA STRENGTH 500 MG PO TABS as needed Active Scopolamine 1 MG/3DAYS Transdermal Patch 72 Hour (Transderm Scop) Place 1 Patch topically on the skin every 3 days. 10 Patch 12 3 Active Naproxen Sodium 220 MG Oral Capsule (Aleve) Take 1 Capsule by mouth 2 times a day with morning and evening meals. Active Drysol 20 % External Solution (Aluminum Chloride) Apply topically to affected area at bedtime. Apply to affected area 35 mL 4 Active Esomeprazole Magnesium 40 MG Oral Capsule Delayed Release (NexIUM)Indicati ons:Abdominal pain, epigastric Take 1 Capsule by mouth daily before breakfast. 90 Capsule 1 5 Active Fluticasone Propionate 50 MCG/ACT Nasal Suspension (Flonase) USE 2 SPRAYS IN EACH NOSTRIL TWICE DAILY 48 g 1 5 Active Ipratropium [place] 0.03 % Nasal Solution (Atrovent)Indica tions:Deviated nasal septum,Chronic rhinitis INHALE 2 SPRAYS IN EACH NOSTRIL 2 TO 3 TIMES DAILY 90 mL 1 5 Active Lisinopril 40 MG Oral TabletIndication s:HTN, goal below 140/90 Take 1 Tablet by mouth in the morning. 90 Tablet 1 5 Active Sulfamethoxazole -Trimethoprim 800-160 MG Oral Tablet (Bactrim DS)Indications:I nfected cyst of skin Take 1 Tablet by mouth in the morning and 1 Tablet before bedtime. Do all this for 7 days. Until gone. 14 Tablet 5 07/06/19 25 Active Amoxicillin-Pot Clavulanate 875-125 MG Oral Tablet (Augmentin)Indic ations:Acute recurrent maxillary sinusitis Take 1 Tablet by mouth in the morning and 1 Tablet before bedtime. Do all this for 10 days. 20 Tablet 5 06/29/19 25 Discontin ued(Medic ation List Clean Up) documented as of this encounter (statuses as of 06/28/2024) Active Problems Problem Noted Date Diagnosed Date Thrombosis of ovarian vein 04/24/2023 Diverticulosis of large intestine without hemorr kalin 04/12/2023 Primary snoring 01/21/2019 Tachycardia 05/17/2018 Hypersomnolence 05/17/2018 S/P radiation therapy 01/01/2018 Schwannoma of cranial nerve 05/31/2017 Sensorineural hearing loss (SNHL) of both ears 0 03/24/2017 HTN, goal below 140/90 08/31/2015 Overview: Per HTN Protocol Dysfunction of eustachian tube 04/27/2010 Hypertrophy of both inferior nasal turbinates NONALLERGIC RHINITIS 01/24/2008 Deviated nasal septum 01/03/2008 Migraine with aura 02/10/2003 Esophagitis 02/10/2003 Calculus of gallbladder with out mention of cholecystitis or obstruction Overview (06/19/2024): ICD-10 Update of Inactive Term Tinnitus Overview (06/27/2017): chronic since teenager Vestibular schwannoma Overview (06/27/2017): Bilateral vestibular schwannoma noted on MRI in May 2017 -40 years ago she had first episode of vertigo -10 years headaches, vertigo, and balance issues -Audiology evaluation in Mar 2017 Dr. Adam (in [facility]) -Hearing changes x past 3-6 months (Formerly diagnosed with TMJ vs Otolith vs Migraine Aura vs Allergies documented as of this encounter (statuses as of 06/28/2024) Resolved Problems Problem Noted Date Diagnosed Date Resolved Date Chronic obstructive pulmonary disease 01/02/2023 07/17/2023 Kidney disease, chronic, sta ge III (GFR 30-59 ml/min) 06/27/2017 11/04/2019 Overview: Per CKD protocol #1 Vertigo 05/31/2017 11/16/2017 Arthralgia of right temporomandibular joint 03/24/2017 06/27/2017 Tinnitus of right ear 03/24/20172017 Other acute recurrent sinusitis 03/24/2017 04/18/2022 Chronic sinusitis 04/27/2010 12/03/2013 HTN, goal to be determined 04/09/2010 0 09/03/2015 Overview: Per HTN Protocol Temporomandibular joint disorder 05/02/2008 06/27/2017 RECURRENT ACUTE SINUSITIS 01/03/2008 ADVANCE DIRECTIVE INFORMATION 10/21/2007 01/03/2008 Overview (10/21/2007): No, Advance Directive brochure given to patient. IRON DEFIC ANEMIA NOS 08/02/20042017 ACUTE SINUSITIS NOS 03/01/2004 01/03/20 08 Allergic rhinitis 02/10/2003 07/02/2013 Varicella without complication 02/10/2003 11/16/2017 documented as of this encounter (statuses as of 06/28/2024) Immunizations Name Administration Dates Next Due COVID-19 mRNA, LNP-s, No Pre serve, 2-Dose Series (Pfizer) 04/09/2021,06/09/2020,05/14/2020 PPD 06/17/2008,09/14/2005 Seasonal Influenza Vac., MDV , IM, 0.5 mL (Fluzone) 01/10/2014,12/19/2011 Seasonal Influenza, PF, 6 M & above, IM , (FluLaval or Fluzone) 04/26/2022,12/19/2019,12/25/2018,2017,12/26/2016,01/20/2016,01/10/2014,1 04/18/2011,12/19/2011,01/06/2011, 010 Seasonal Influenza, Quadriva lent Hd, 65+ Yrs 01/07/2021 Seasonal Influenza, Quadriva lent, No Preserve, IM 12/19/2019,12/25/2018,12/26/2016 Seasonal Influenza, Recombin ant, RIV4, PF, (Flublock) 04/02/2024 Seasonal Influenza, Trivalen t, (IIV3), PF, (Fluzone) 01/20/2016,01/06/2011,01/22/2010 TDAP, Age 7 and older, IM (Adacel) 12/19/2019, documented as of this encounter Social History Tobacco Use Types Packs/Day Years Used Date Smoking Tobacco: Never Smokeless Tobacco: Never Comments:only as teenager/hu sband smokes Alcohol Use Standard Drinks/Week Comments Not Currently 0 (1 standard drink = 0.6 oz pur e alcohol) PHQ-2 Answer Date Recorded PHQ Adult Total Score 0 09/27/2021 Comments No Sex and Gender Information Value Date Recorded Sex Assigned at Not on file Legal Sex Female 5:56 AM EST Gender Identity Not on file Sexual Orientation Not on file Occupation Industry Job Start Date Job End Date Not on file Not on file Not on file documented as of this encounter Last Filed Vital Signs Vital Sign Reading Time Taken Comments Blood Pressure 138/92 06/28/2024 1:26 PM EDT Pulse 82 06/28/2024 1:26 PM EDT Temperature 37.4 °C (99.4 °F) 06/28/2024 1:26 PM ED T Respiratory Rate - - Oxygen Saturation 90% 06/28/2024 1:26 PM EDT Inhaled Oxygen Concentration - - Weight - - Height - - Body Mass Index - - documented in this encounter Progress Notes * Kristina Mares PA-C - 06/28/2024 1:23 PM EDT Images from the original note were not included. Subjective Xiomara Piper is a 64 year old female that presents for Lump Pt here today with a c/o pain, redness, and edema of cyst on chest between breasts. Reports has hadsmall cyst there for some time. Currently symptoms began earlier this week. Denies fever/chills. Review of Systems: See HPI for pertinent positives. All other review of systems is negative. Objective BP 138/92 | Pulse 82 | Temp 99.4 °F (37.4 °C) | LMP 04/28/2010 | SpO2 90% Physical Exam Constitutional: General: She is not in acute distress. Appearance: She is not diaphoretic. Cardiovascular: Rate and Rhythm: Normal rate and regular rhythm. Pulmonary: Effort: Pulmonary effort is normal. Chest: Skin: General: Skin is warm and dry. Neurological: General: No focal deficit present. Mental Status: She is alert. Mental status is at baseline. Assessment and Plan Infected cyst of skin Orders: Sulfamethoxazole-Trimethoprim 800-160 MG Oral Tablet (Bactrim DS); Take 1 Tablet by mouth in the morning and 1 Tablet before bedtime. Do all this for 7 days. Until gone. Bactrim DS. Daily yogurt/probiotic encouraged while taking the antibiotic. Warm compresses to area.Antimicrobial soap to area. Wrap-Up Follow Up: Return if symptoms worsen or fail to improve. documented in this encounter Nursing Notes * Eliane Fishman CCMA - 06/28/2024 1:22 PM EDT Pt is here today for lump in middle of breast pt stated there is pain pt stated she had this lump for while now and pt stated its really sore and bigger than normally pt did have mammogram in pt is not having fevers pt refused weight today documented in this encounter Plan of Treatment Upcoming Encounters Date Type Department Care Team (Late st Contact Info) Description 08/26/2024 11:00 AM EDT Hospital Encounter Radiology, [facility] [address] [facility] [address] 09/03/2024 1:30 PM EDT Office Visit Radiation Oncology, [place] [address] [place] [address] Sherley Jones CRNP [address] [place] [address] 10/17/2024 11:00 AM EDT Office Visit [facility] [address] [place] [phone] Gerry Flores PA-C [address] [facility] [place] [address] 10/24/2024 11:00 AM EDT Office Visit [facility] [address] [place] [phone] Gerry Flores PA-C [address] [facility] [place] [address] 10/31/2024 11:00 AM EDT Office Visit [facility] [address] [place] [phone] Gerry Flores PA-C [address] [place] [address] Health Maintenance Due Date Last Done Comments Depression Screening 1974 Pneumococcal Vaccine: 50+ Years (1 of 2 - PCV) 1981 HPV/Co-Test 1992 Colonoscopy 2007 Fecal Occult Blood Test 2007 Sigmoidoscopy 2007 Zoster Vaccines (1 of 2) 2012 Cologuard 07/04/2023 07/03/2020, 12/26/2016 Colorectal Cancer Screening 07/04/2023 COVID-19 Vaccine ( season) 2023 04/09/2021, 06/09/2020, 05/14/2020 GFR 05/13/2024 05/13/2023, 03/20, 12/05/2022, Additional history exists Mammogram 02/12/2025 02/13/2024, 01/19, 02/01/2022, Additional history exists Cervical Cancer Screening 04/19/2025 Pap Smear 04/19/2025 04/19/2022, 09/18, 06/22/2016, Additional history exists Diabetes Screening 05/13/2026 05/13/2023, 0 04/04/2023, 12/05/2022, Additional history exists Albumin/Creatinine Ratio 01/18/2027 01/19/2024 Lipid Panel 01/18/2029 01/19/2024, 06/19, 02/29/2012, Additional history exists DTap/Tdap Vaccines (3 - Td or Tdap) 12/18/2029 12/19/2019, 01/05/2010, 05/15/2001 Influenza Vaccine (FLU shot) Completed , 04/26/2022, 01/07/2021, Additional history exists HPV (Gardasil) Vaccine Aged Out No lo nger eligible based on patient's age to complete this topic Hepatitis B Vaccine Aged Out No longe r eligible based on patient's age to complete this topic MENINGOCOCCAL (MENACTRA/MENVEO) Aged Out No longer eligible based on patient's age to complete this topic Meningitis B Vaccine (Bexsero/Trumemba) Aged Out No longer eligible based on patient's age to complete this topic documented as of this encounter Medical Devices Implanted Type Area Airbrush Artist Photography Device Identifier Shelf Expiration Date Model / Serial / Lot Lens Li61ao 13.00mm 12.50 - [id number] - [id number] Implanted:Qty: 1 on 07/20/2023 by Samir Land MD at OR [facility] Left: Eye BAUSCH 08/18/2027 [id number] / [id number] / [id number] Lens Li61ao 13.00mm 12.50 - [id number] - [id number] Implanted:Qty: 1 on 08/03/2023 by Samir Land MD at OR [facility] Right: Eye BAUSCH 10/18/2027 [id number] / [id number] / [id number] documented as of this encounter Visit Diagnoses Diagnosis Infected cyst of skin- Primary Sebaceous cyst documented in this encounter Advance Directives * Full Code (Latest Code Status on File) Date Activated Date Inactivated Comments 08/03/2023 9:30 AM 08/03/2023 3:28 PM This order r eflects the patients wishes and were consensually agreed upon. Question Answer Comments Discussion of Advance Directives occurred with: Patient Does the patient have a Living Will? No Does the patient have Health Care Power of Attor tracey? No * Full Code Date Activated Date Inactivated Comments 07/20/2023 9:29 AM 07/20/2023 4:50 PM This order ref lects the patients wishes and were consensually agreed upon. Question Answer Comments Discussion of Advance Directives occurred with: Patient Does the patient have a Living Will? No Does the patient have Health Care Power of Attor tracey? No Care Teams Metal Forger'S Assistant Relationship Specialty Start Date End Date Wei Meagan JANICE Hatfield [address] [place] [address] [place] [address] PCP - General Physician Entry Level Account Executive 05/05/23 documented as of this encounter"
[2024-07-01 02:12] VITALS: TEMP 97.7; O2SAT 96
[2024-07-01] MEDS: DAPTOmycin 500 MG in SYRINGE 0 ML IV SCH (02:14)
[2024-07-01] MEDS: SODIUM CHLORIDE 0.9% 1,000 ML IV SCH (02:14)
--- NOTE | 2024-07-01 03:54 | Surgery Consultation ---
Date of Consultation July 01, 2024 Assessment & Plan (1) Infected cyst of skin: Patient has been admitted on hospital service. From surgery perspective we recommend the following: She has been placed on broad-spectrum antibiotics in form of Rocephin and daptomycin which should continue Based on characteristics on exam this does appear to be a cystic structure and may require incision and drainage The patient has been empirically made n.p.o. at the present time. Will be examined by Dr. Ley the morning of 07/01/2024 and a determination be made if patient can have this incision and drainage performed at the bedside versus taking her to the operating room At the present time the patient has nontoxic (she is normotensive without tachycardia, fever, or leukocytosis) Additional recommendations will be forthcoming based on clinical course as unfolds Supervising Physician Co-Signing Physician Notes I have seen and examined this patient this am. She is able to undergo I&D at the bedside. The details of the procedure have been explained to her including risks, benefits and alternative options. She expressed understanding and consent was obtained. History of Present Illness Reason for Consultation: Chest wall abscess Attending Physician: Julissa Wilkerson MD History of Present Illness This is a 64-year-old female who presented to the emergency department secondary to possible infection on her chest. Patient said that she has a history of a sebaceous cyst on her chest that has been present for "years" and has never given her trouble however several days ago started getting red and somewhat painful. Her family doctor placed her on Bactrim which she has been taking for approximately 3 days but the above-noted situation has not alleviated. She denies any fevers, shakes, or chills. She denies any cuts or excoriations to this area. She notes that nothing is draining from it as well. She denies taking any blood thinners. Since arrival to the emergency department she has had labs and imaging which I independent reviewed. The soft tissue ultrasound showed the patient had 2.4 x 1.3 x 2.3 cm fluid collection potentially representing an abscess. The interpreting radiologist did specify that the malignancy could not be excluded. CBC revealed white blood cell count, hemoglobin, hematocrit, and platelet count were normal. Chemistry profile showed sodium and potassium as well as the BUN and creatinine were normal. At the time my interview the patient was resting comfortably in bed and she was in no distress Allergies Allergy/AdvReac Type Severity Reaction Status Date / Time levofloxacin Allergy Mild severe Verified 06/21/24 12:56 tendon pain in b/l knee ciprofloxacin Allergy Verified 06/21/24 12:56 amoxicillin AdvReac Unknown n/v Verified 06/21/24 12:56 clavulanic acid AdvReac Unknown n/v Verified 06/21/24 12:56 erythromycin base AdvReac Unknown GI UPSET Verified 06/21/24 12:56 prednisone AdvReac Unknown PALPITATIONS, Verified 06/21/24 12:56 JITTERY Home Medications Medication Instructions Recorded Confirmed Type esomeprazole magnesium 40 mg 40 mg PO DAILY 06/30/24 06/30/24 History capsule,delayed release fluticasone propionate 50 1 spray intranasal BID 06/30/24 06/30/24 History mcg/actuation nasal spray,suspension ipratropium bromide 21 mcg (0.03 2 spray intranasal BID 06/30/24 06/30/24 History %) nasal spray lisinopril 40 mg tablet 40 mg PO DAILY 06/30/24 06/30/24 History sodium chloride 0.65 % nasal spray 1 spray intranasal BID PRN Nasal 06/30/24 06/30/24 History aerosol (Nasal [place] (sodium Congestion chloride)) sulfamethoxazole 800 1 tab PO BID 06/30/24 06/30/24 History mg-trimethoprim 160 mg tablet Patient History Medical History Hormone replacement therapy stopped 03/2023 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 Diverticulosis Pelvic pain in female H/O uterine leiomyoma Surgical History History of sinus surgery History of cholecystectomy H/O ligation of vein Family History Mother Breast cancer, Onset Age: 81 Grandmother (Maternal) Colorectal cancer Aunt Lung cancer maternal Denies family history of Prostate cancer Social History Smoking Status: Former smoker Do You Dip or Chew Tobacco: No; Hx Alcohol Use: No Hx Substance Use: No Preferred Language: Indonesian 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 Beliefs That Will Affect Care: None Current Living Situation: Spouse Other Information That Helps Us Care for You: No Feels Safe at Home: Yes Safety Concerns: Feels Safe At This Time Assistive Devices: Contacts and Glasses Review of Systems Review of Systems: All systems reviewed & are unremarkable except as noted in HPI & below Physical Exam Constitutional: WD/WN, vitals as above Eyes: no conjunctival abnormality ENMT: Ears: no hearing impairment and no external ear abnormality Mouth: no oropharynx abnormality Neck: trachea midline Respiratory: normal respiratory effort; no respiratory distress and no labored breathing Cardiovascular: Rate/Rhythm: regular rate and regular rhythm Chest (Breasts): Additional Comments: With a female nurse sales representative advertising present the patient's chest was examined. Just inferior to her breast in the midline patient had what appeared to be an area of erythema. The area was somewhat fluctuant to palpation it was also somewhat indurated. There are no open areas or areas of drainage. The area was soft. It was somewhat tender to palpation Gastrointestinal (Abdomen): Soft and nontender to palpation Musculoskeletal: No calf tenderness Skin: no rashes Neurologic: moves all extremities Psychiatric: A+Ox3, euthymic affect Results & Data Vital Signs (Past 12 Hours) Vital Signs Temp Pulse Pulse Resp BP BP Pulse Ox 07/01/24 02:03 36.5 C 75 18 151/104 H 96 07/01/24 00:30 62 17 151/94 H 92 06/30/24 22:49 71 17 150/96 H 92 06/30/24 20:51 36.8 C 85 16 170/103 H 97 O2 Del Method 07/01/24 02:03 Room Air 07/01/24 00:30 Room Air 06/30/24 22:49 Room Air 06/30/24 20:51 Room Air PG Care Time/CCT Total # of Minutes Spent Total Time Spent with Patient: Total time spent is greater than 50% in coordination of care (as documented) at patient's floor/unit and/or counseling patient: Coding Level of Care Code 64403 IN/OBS CONSULT LVL 5,80M Diagnoses Infected cyst of skin L72.9; L08.9
[2024-07-01 05:25] LABS: Basophils # (auto) 0.03 K/uL (0.00-0.20); Basophils % (auto) 0.5 %; Eosinophils # (auto) 0.15 K/uL (0.00-0.50); Eosinophils % (auto) 2.6 %; Hematocrit (blood only) 38.8 % (37.0-47.0); Hemoglobin 12.5 g/dl (12.0-16.0); Immature Granulocytes # (auto) 0.02 K/uL (0.01-0.20); Immature Granulocytes % (auto) 0.4 %; Lymphocytes # (auto) 1.97 K/uL (1.20-3.40); Lymphocytes % (auto) 34.6 %; Mean Corpuscular Hemoglobin 27.3 pg (25.0-34.0); Mean Corpuscular Hgb Conc 32.2 g/dL (32.0-36.0); Mean Corpuscular Volume 84.7 fL (80.0-100.0); Mean Platelet Volume 11.2 fL (9.4-12.4); Monocytes # (auto) 0.55 K/uL (0.11-0.59); Monocytes % (auto) 9.6 %; Neutrophils # (auto) 2.98 K/uL (1.40-6.50); Neutrophils % (auto) 52.3 %; Platelet Count 204 K/uL (130-400); RDW Coefficient of Variation 14.3 % (11.5-14.5); RDW Standard Deviation 43.6 fL (36.4-46.3); Red Blood Count 4.58 M/uL (4.20-5.40)
[2024-07-01 05:33] LABS: BUN Creatinine Ratio 14.9 (10-20); Calcium 8.6 mg/dl (8.6-10.3); Creatinine Clr Calc Pharmacy 69.3 ml/min; Magnesium 1.8 mg/dl (1.7-2.4); Potassium 3.8 mmol/L (3.5-5.1)
[2024-07-01 06:23] VITALS: BP 153/98; PULSE 74; RESP 20
[2024-07-01] MEDS: LIDOCAINE 1%/EPINEPHRINE 1:100,000 50 ML VIAL INFIL ONE (08:45)
[2024-07-01] MEDS: FLUTICASONE PROPIONATE NA SPR 16 GM BTL SCH (08:57)
[2024-07-01] MEDS: PANTOprazole 40 MG TAB PO SCH (08:58)
[2024-07-01] MEDS: lisinopril 40 MG TAB PO SCH (08:58)
[2024-07-01] MEDS: IPRATROPIUM BROMIDE NASAL SPRAY 0.03% 30 ML SCH (08:58)
--- NOTE | 2024-07-01 10:07 | Procedure Note ---
Procedure Note Date of Service July 01, 2024 Consent had been obtained. The patent's ED nurse as well as [facility] members of the surgical team were present along with the patient's . The area of concern at the central, anterior chest wall was prepped and draped in typical sterile fashion. The skin over the abscess was anesthetized using local anesthetic and an incision was made. Purulent drainage spontaneously expelled from the area and a culture was obtained. The area was cleared of additional purulent fluid and sebaceous cyst debris and sac contents. The area was then irrigated with saline and dried. 1/4" packing was used to lightly pack the incision. The wound was covered with dry gauze secured in place with tape. The patient tolerated the procedure well and there was little to no bleeding. The patient may be discharged home from a surgical standpoint on oral abx. Follow up with her PCP to review culture results next week if possible. Change the packing daily until the wound can no longer accept packing She may follow up with me in the office for wound check in 1-2 weeks Coding Additional Codes Date of Service ([facility]SURGERY)
[2024-07-01] MEDS: ACETAMINOPHEN 1,000 MG/100 ML VIAL IV PRN (11:24)
--- NOTE | 2024-07-01 12:49 | Discharge Summary ---
Date of Service July 01, 2024 Admission HPI Per Admitting Provider 64-year-old female with past medical history significant for nonallergic rhinitis, hypertension, history of tachycardia, history of thrombosis of ovarian vein, esophagitis, history of calculus of gallbladder, diverticulosis, history of vestibular schwannoma, history of migraine, presents with infected cyst on the chest wall in the center of sternum. Patient states she has a lump there for many years. But since last 1 week started getting red and swollen and saw PCP and prescribed Bactrim on 06/28/2024. But the lump on the chest is getting bigger erythematous and more painful and the pain was radiating to the breast when she decided to come to the ER today. Denies any fevers. Currently denies runny nose. Has some cough from her sinusitis. No shortness of breath. No nausea. No abdominal pain. Since starting on Bactrim she has some diarrhea. Micturating okay. Ambulating okay. Hemodynamics are okay. Past medical history. As mentioned above Past surgical history. Breast biopsy. Dental surgery. EGD. Laparoscopic cholecystectomy. Ligation of varicose veins. Nasal endoscopy. Bilateral cataracts. Social history. . No smoking. No alcohol use. No drug use. Family history. Father hypertension. Mother had hypercholesterolemia. Hypertension. Hypothyroidism. Maternal aunt had leukemia and lymphoma. Admission Exam Per Admitting Provider General- Not in distress Head- atraumatic Eyes- PERRL. ENT- oropharynx clear Neck- supple, no JVD. Lungs- clear to auscultation no wheezing or crackles Heart- regular rate and rhythm; no murmur, no gallop. Abdomen- normal bowel sounds, soft, nontender, no distension Extremities- no pretibial edema, no erythema seen Neuro- alert, oriented PERRL, no facial palsy; no dysarthria; moves extremities Skin- infected cyst seen on the middle of sternal region with erythema surrounding on inspection. Inspected in presence of the nursing staff Principal Diagnosis Infected cyst of the skin Discharge Exam Constitutional + well hydrated; no acute distress Eyes PERRL, conjunctivae normal, anicteric sclerae ENMT external ear and nose normal, oropharynx normal Respiratory normal respiratory effort, lungs clear to auscultation Cardiovascular Rate/Rhythm: regular rate and regular rhythm Chest (Breasts) Additional Comments: Dressing over anterior chest Gastrointestinal (Abdomen) normal bowel sounds, soft, nontender, no hepatosplenomegaly Musculoskeletal no cyanosis or clubbing, extremities motor strength 5/5 Neurologic PERRL, EOMI, accommodation nl, no face palsy, no dysarthria Psychiatric A+Ox3, euthymic affect Discharge Data Allergies Allergy/AdvReac Type Severity Reaction Status Date / Time levofloxacin Allergy Mild severe Verified 06/21/24 12:56 tendon pain in b/l knee ciprofloxacin Allergy Verified 06/21/24 12:56 amoxicillin AdvReac Unknown n/v Verified 06/21/24 12:56 clavulanic acid AdvReac Unknown n/v Verified 06/21/24 12:56 erythromycin base AdvReac Unknown GI UPSET Verified 06/21/24 12:56 prednisone AdvReac Unknown PALPITATIONS, Verified 06/21/24 12:56 JITTERY Consultations 06/30/24 23:09 ED Decision to Admit Stat 07/01/24 08:00 Consult General Surgery Routine Ordered Studies 06/30/24 21:39 US softtissue [facility] Urgent Hospital Course (1) Infected cyst of skin: 64-year-old female with past medical history significant for nonallergic rhinitis, hypertension, history of tachycardia, history of thrombosis of ovarian vein, esophagitis, history of calculus of gallbladder, diverticulosis, history of vestibular schwannoma, history of migraine, presents with infected cyst on the chest wall in the center of sternum. Patient has had lump for years but got inflammed over the past week and was started on bactrim by PCP However, it continued to get bigger and more painful necessitating ER presentation Infected cyst of skin Ultrasound:In the midline of the chest, between the breasts, there is a complex vascular hypoechoic structure measuring 2.4 x 1.3 x 2.3 cm.. This may represent an abscess. Malignancy cannot be excluded on this exam. Failed outpatient treatment with Bactrim S/p I & D by Gen surgery today Discharged on Augmentin for 7 days Patient and provided dressing instructions by RN Patient to follow up with Surg outpatient Total Time Total Time Spent Total Time Spent (In Minutes): 35 Total Time Includes: Examination of the Patient, Discharge Planning and Medication Reconciliation Discharge Plan Discharge Items Patient Disposition: Home - Self-Care Reason For Visit: INFECTED CYST Discharge Diagnosis: Infected cyst of the skin Condition on Discharge: Good Activity: Per Instructions section Non-emergency contact: Primary Care Provider and Surgeon Call non-emergency contact if: your pain is not controlled, your temperature is above 101 and your wound has increased redness Follow-up/Referrals: Meagan Carvajal PA-C [Primary Care Provider] - (Date & Time 07/08/2024 12:00 PM Provider: Meagan Carvajal PA-C [facility] ) Francie Mirza DO [Physician] - (f/u in 2 - 3 weeks ) Diet: Regular Addtl Attending Provider Instructions: Mrs Piper You were managed for infected cyst and had incision and drainage You are being discharged with oral antibiotics. Please follow care instructions as detailed below It was a pleasure taking care of you Addtl Pick Out Hand Provider Instructions: SPECIAL CARE INSTRUCTIONS: * You have gauze packing in place - this should be changed one a day and place a dry gauze pad and tape over top. * You may shower on 07/02/2024 . NO soaking in bath tubs, hot tubs, or pools for 2 weeks * No lifting greater than 10lbs. No exercise until cleared by surgeon. Light walking is accepted. * No driving while taking narcotic pain medication * No drinking alcohol while taking narcotic pain medication * May use Ibuprofen/Tylenol over the counter for pain as tolerated. Do not exceed 3grams of Tylenol per 24 hours * Expect some swelling and bruising. * Diet as tolerated CALL YOUR DOCTOR IF: * Temperature above 101 degrees, nausea/vomiting, fever/chills * Pain not relieved by pain medicine ordered * There is increased drainage or redness from any incision * You have any unanswered questions or concerns [phone]. FOLLOW UP VISIT: If not already scheduled, please call the office for a follow-up visit. Office Stand-Alone Forms: My VISE[employer], Smoking Cessation Medications and DC Order Prescriptions: New amoxicillin-pot clavulanate 875-125 mg tablet 1 tab PO BID 7 Days Qty: 14 0RF Continued esomeprazole magnesium 40 mg capsule,delayed release(DR/EC) 40 mg PO DAILY lisinopril 40 mg tablet 40 mg PO DAILY ipratropium bromide 21 mcg (0.03 %) spray,non-aerosol 2 spray INTRANASAL BID fluticasone propionate 50 mcg/actuation [place],Suspension 1 spray INTRANASAL BID Rx Instructions: administer into each nostril Nasal [place] (sodium chloride) 0.65 % Aerosol,[place] 1 spray INTRANASAL BID PRN (Reason: Nasal Congestion) Discontinued sulfamethoxazole-trimethoprim 800-160 mg tablet 1 tab PO BID Discharge Orders: Discharge Order (Routine); Ordered 07/01/24 Ordered By: Julissa Wilkerson Admission Data Admit Date/Time: 06/30/24 23:29 Attending Provider: Julissa Wilkerson I. Admit Provider: Roberth Alegria Primary Care Provider: Meagan Carvajal Other Providers: Francie Mirza; Roberth Alegria Other Interventions: Discharge Summary Assessment (RN) Last Done: 07/01/24 12:52
[2024-07-01] MEDS ORDERED: cefTRIAXone SODIUM 2,000 MG/50 ML BAG IV SCH (21:00)
== END 2024-07-01 13:10 | disposition home or self-care (01) | DRG 603 ==
LOC: ED 20:47 → EDINP 23:29